=== PATIENT | male | born 1950 | race Two or more races ===

== ENCOUNTER 2017-07-25 10:19 | Emergency (ER) | payer OTHER ==
[~2017-07-25] VITALS: Ht 175.3 cm; Wt 87.5 kg
[2017-07-25 10:30] VITALS: BP 142/81; Ht 175.3 cm; Wt 87.5 kg
[2017-07-25 11:18] LABS: BASOPHIL % 0.6 % (0-2); PLATELET COUNT 197 x10^3mcL (130-400)
[2017-07-25 11:22] LABS: RED CELL DISTRIBUTION WIDTH 14.7 % (11.5-14.5)
[2017-07-25 11:42] LABS: CALCIUM 8.9 mg/dL (8.5-10.1); CARBON DIOXIDE 25.3 mmol/L (21-32); CHLORIDE SERUM 106 mmol/L (98-107); CREATININE SERUM 1.2 mg/dL (0.7-1.3); GFR1 > 60 mL/min; GLUCOSE SERUM 174 mg/dL (74-106); POTASSIUM SERUM 4.4 mmol/L (3.5-5.1); SODIUM SERUM 139 mmol/L (136-145)
[2017-07-25 11:46] LABS: AMYLASE 68 U/L (25-115); LIPASE 254 IU/L (73-393)
[2017-07-25 12:00] LABS: ALBUMIN 3.4 g/dL (3.4-5.0); ALKALINE PHOSPHATASE 89 U/L (46-116); ALT/SGPT 55 U/L (16-63); AST/SGOT 33 U/L (15-37); BILIRUBIN TOTAL 0.7 mg/dL (0.20-1.00); CHOLESTEROL 198 mg/dL (<200); HDL CHOLESTEROL 57 mg/dL (40-60); T4(THYROXINE) 5.5 ug/dL (4.7-13.3); TOTAL PROTEIN, SERUM 6.5 g/dL (6.4-8.2); URIC ACID 4.2 mg/dL (3.5-7.2)
== END 2017-07-25 11:50 | disposition left against medical advice (07) ==
LOC: ED 10:19
PROVIDERS: Emergency Medicine
DX: M79.671 Pain in right foot (principal); R11.10 Vomiting, unspecified; I25.810 Atherosclerosis of coronary artery bypass graft(s) without angina pectoris; I10 Essential (primary) hypertension; E11.9 Type 2 diabetes mellitus without complications; F17.210 Nicotine dependence, cigarettes, uncomplicated; Z85.46 Personal history of malignant neoplasm of prostate
CPT/HCPCS: 36415; 82962; 83880; J1100; J1885; J7030; Q0092

== ENCOUNTER 2019-05-09 08:28 | Emergency (ER) | payer OTHER ==
[~2019-05-09] VITALS: Ht 175.3 cm; Wt 92.1 kg
[~2019-05-09 08:28] MED LIST: ASPIR 8181 MG PO; METFORMIN HYDR500 M1 PO
[2019-05-09 08:32] VITALS: Ht 175.3 cm; Wt 92.1 kg
[2019-05-09 09:41] VITALS: BP 110/67
== END 2019-05-09 09:41 | disposition home or self-care (01) ==
LOC: ED 08:28
DX: M79.671 Pain in right foot (principal); I10 Essential (primary) hypertension; E11.9 Type 2 diabetes mellitus without complications; I25.2 Old myocardial infarction

== ENCOUNTER 2019-09-10 17:48 | Emergency (ER) | payer OTHER ==
[~2019-09-10] VITALS: Ht 175.3 cm; Wt 95.3 kg
[2019-09-10 18:10] VITALS: Ht 175.3 cm; Wt 95.3 kg
[2019-09-10 19:41] VITALS: BP 133/73
== END 2019-09-10 19:41 | disposition home or self-care (01) ==
LOC: ED 17:48
DX: S82.002A Unspecified fracture of left patella, initial encounter for closed fracture (principal); I10 Essential (primary) hypertension; E11.9 Type 2 diabetes mellitus without complications; Z95.1 Presence of aortocoronary bypass graft; Z85.46 Personal history of malignant neoplasm of prostate; W01.0XXA Fall on same level from slipping, tripping and stumbling without subsequent striking against object, initial encounter; Y93.89 Activity, other specified; Y92.89 Other specified places as the place of occurrence of the external cause; Y99.8 Other external cause status
CPT/HCPCS: 90715; Q0092

== ENCOUNTER 2020-02-03 01:09 | Emergency (ER) | payer OTHER ==
[~2020-02-03] VITALS: Ht 177.8 cm; Wt 91.2 kg
[2020-02-03 01:26] VITALS: Ht 177.8 cm; Wt 91.2 kg
[2020-02-03 02:06] VITALS: BP 122/75
== END 2020-02-03 02:04 | disposition home or self-care (01) ==
LOC: ED 01:09
DX: E11.40 Type 2 diabetes mellitus with diabetic neuropathy, unspecified (principal); I10 Essential (primary) hypertension; E11.9 Type 2 diabetes mellitus without complications; Z95.1 Presence of aortocoronary bypass graft

== ENCOUNTER 2020-04-11 01:22 | Emergency (ER) | payer OTHER ==
[~2020-04-11] VITALS: Ht 175.3 cm; Wt 92.5 kg
[2020-04-11 01:31] VITALS: Ht 175.3 cm; Wt 92.5 kg
[2020-04-11 02:04] VITALS: BP 133/77
== END 2020-04-11 02:04 | disposition home or self-care (01) ==
LOC: ED 01:22
DX: E11.40 Type 2 diabetes mellitus with diabetic neuropathy, unspecified (principal); I10 Essential (primary) hypertension; Z95.1 Presence of aortocoronary bypass graft